=== PATIENT | male | born 1995 | race African-American/Black ===

== ENCOUNTER 2018-10-29 10:16 | Emergency (ER) | payer OTHER ==
[~2018-10-29] VITALS: Ht 188 cm; Wt 78.9 kg
[2018-10-29 10:21] VITALS: BP 107/59; Ht 188 cm; Wt 78.9 kg
== END 2018-10-29 12:34 | disposition home or self-care (01) ==
LOC: ED 10:16
DX: R11.2 Nausea with vomiting, unspecified (principal); R19.7 Diarrhea, unspecified; R10.13 Epigastric pain